=== PATIENT | female | born 1995 | race Caucasian/White ===

== ENCOUNTER 2017-10-29 07:18 | Emergency (ER) | payer OTHER ==
[2017-10-29 08:00] VITALS: BP 112/64
--- NOTE | 2017-10-29 08:00 | ED Physician Documentation ---
History of Present Illness - Stated complaint Stated Complaint: LT EYE SWOLLEN - Chief complaint Chief Complaint: Heent - Additonal information Additional information: hx from pt 22 f denies preg no contacts L eye redness swelling and dc had an eyelash in her eye a few days ago but got it out Review of Systems Eyes: reports: Discharge, Irritation PD PAST MEDICAL HISTORY - Present Medications Home Medications: Ambulatory Orders Medication Instructions Recorded Confirmed Bcp 10/29/17 Erythromycin Base [Erythromycin] 1 applic OP Q4H #1 tub 10/29/17 - Allergies Allergies/Adverse Reactions: Allergies Allergy/AdvReac Type Severity Reaction Status Date / Time No Known Drug Allergies Allergy Verified 10/29/17 07:23 PD ED PE NORMAL - Vitals Vital signs reviewed: Yes - HEENT HEENT: Other (L eye with infecttion, puruelnt dc, no FB including under lid, no periorbital involvement) - Cardiac Cardiac: RRR - Respiratory Respiratory: No respiratory distress, Clear bilaterally Results - Vitals Vitals: Vital Signs - 24 hr 10/29/17 07:21 Temperature 36.1 C L Heart Rate 81 Respiratory 18 Rate Blood Pressure 115/51 L O2 Saturation 100 Oxygen O2 Source Room air Departure - Departure Disposition: 01 Home, Self Care Clinical Impression: Conjunctivitis Qualifiers: Conjunctivitis type: acute Acute conjunctivitis type: unspecified Laterality: left Qualified Code(s): H10.32 - Unspecified acute conjunctivitis, left eye Condition: Good Instructions: ED Conjunctivitis Nonspecific Follow-Up: [facility] [Provider Group] Prescriptions: Erythromycin Base [Erythromycin] 1 applic OP Q4H #1 tub Forms: Activity restrictions
== END 2017-10-29 08:05 | disposition home or self-care (01) ==
LOC: ED 07:18
DX: H10.32 Unspecified acute conjunctivitis, left eye (principal)
CPT/HCPCS: 99283